=== PATIENT | male | born 1970 | race Hispanic/Latino ===

== ENCOUNTER 2017-09-01 11:16 | Emergency (ER) | payer BC ==
[2017-09-01 11:24] VITALS: BMI 32.5
[2017-09-01 11:25] VITALS: RESP 18; TEMP 98
[2017-09-01] MEDS ORDERED: levoFLOXacin 750 MG TAB PO STA (12:12)
--- NOTE | 2017-09-01 12:20 | ED PDOC ---
Arrival/HPI - General Chief Complaint: ENT Problem Time Seen by Provider: 09/01/17 12:07 Historian: Patient - History of Present Illness Narrative History of Present Illness (Text): 09/01/17 12:10 A 46 year old male, with no significant past medical history, presents to the emergency department complaining of initially dry productive cough subsequently turning to clear yellow, non-bloody sputum intermittently for the last 9 days. Patient reports initially experiencing symptom along with severe nasal congestion, sore throat, and subjective fever (T-max 99). States symptoms improved, however within the last 24 hours, coughing/congestion symptoms have worsened, resulting in associated bilateral ear pain (left greater than right), and mild headache. Patient describes feeling as though he is "under water". Patient denies any chills, diaphoresis, chest pain, shortness of breath, wheezing, abdominal pain, nausea, vomiting, new rashes, or any other complaints at this time. 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 pt denied john pt denied vision changes pt denied other complaints pt is here for further eval PMD: Dr. Ramos Time/Duration: > week (9 days) Symptom Onset: Gradual Symptom Course: Worsening Severity Level: Severe Activities at Onset: Rest Context: Home Past Medical History - Provider Review Nursing Documentation Reviewed: Yes - Travel History Have you recently traveled outside [place] w/in the past 3 mons?: No - Past History Past History: No Previous - Infectious Disease Hx of Infectious Diseases: None - Psychiatric Hx Substance Use: No - Surgical History Other/Comment: JESSIE mae, "bone infection" - Anesthesia Hx Anesthesia: Yes Hx Anesthesia Reactions: No Hx Malignant Hyperthermia: No Family/Social History - Physician Review Nursing Documentation Reviewed: Yes Family/Social History: No Known Family HX Smoking Status: Never Smoked Hx Alcohol Use: No Hx Substance Use: No Allergies/Home Meds Allergies/Adverse Reactions: Allergies azithromycin Allergy (Verified 09/01/17 11:26) RASH cefprozil [From Cefzil] Allergy (Verified 09/01/17 11:26) RASH nafcillin Allergy (Verified 09/01/17 11:24) RASH rifampin Allergy (Verified 09/01/17 11:26) RASH Review of Systems - Physician Review All systems were reviewed & negative as marked: Yes - Review of Systems Constitutional: Fevers (subjective) Eyes: Normal ENT: Sore Throat, Sinus Congestion, Other (bilateral ear pain (left greater than right)) Respiratory: Cough (productive), Sputum (yellowish, non-bloody). absent: SOB, Wheezing Cardiovascular: absent: Chest Pain Gastrointestinal: absent: Abdominal Pain, Nausea, Vomiting Genitourinary Male: absent: Dysuria, Frequency, Hematuria, Urinary Output Changes Musculoskeletal: Normal Skin: absent: Rash Neurological: Headache (mild) Endocrine: absent: Diaphoresis Hemo/Lymphatic: Normal Psychiatric: Normal Physical Exam - Physical Exam Narrative Physical Exam (Text): 09/01/17 1215 General: alert/awake, GCS = 15, oriented x 3, resting in bed, uncomfortable, cooperative, interactive; NAD Head: NC/AT EYE: PERRLA, EOMI, sclera anicteric, no nystagmus, no photophobia Facial: WNL ENT: + left partial obstrx from cerumen but noted TM erythema/bulging; no discharge/bleeding/FB/masses noted; right TM, no pus/discharge noted, no tenderness noted on exam Oral: uvula/tongue are midline, no exudate/lesions, no drooling/stridor, no dysphonia; intact dentitions; moist oral mucosa NECK: intact ROM, no midline tenderness, no nuchal rigidity, no meningeal signs ; no step off Chest: CTA b/l, no w/r/r; no tachypenia, no accessory muscle use noted Chest Wall: no focal tenderness, no gross deformities, no crepitus, no lesions/ rashes noted Cardiac: +S1, +S2, no m/r/r, no tachycardia Abdominal: +BS, soft/nd/nt, well nourished patient; no masses/rebound/guarding/ rigidity; no buck's sign, no mcburney's point tenderness Extremities: intact ROM, strength 5/5 grossly intact in all limbs, neurovasc intact b/l; + ambulatory; reflex +2/2 BACK: no step off, no midline tenderness, NO crepitus, no gross deformities noted; Intact ROM SKIN: cap refill < 1 sec, no ulcerations, no petechiae, no rashes NEURO: CNII-XII WNL, no facial asymmetries, no slurr speech, oriented x 3 NIH stroke scale ~ 0 Psych: normal insight, normal affect; follows command with ease Vital Signs Reviewed: Yes Vital Signs Temp Pulse Resp BP Pulse Ox 09/01/17 14:30 83 18 112/75 98 09/01/17 11:24 98.0 F 94 H 18 123/83 97 Temperature: Afebrile Blood Pressure: Normal Pulse: Regular Respiratory Rate: Normal Appearance: Positive for: Well-Appearing, Non-Toxic, Uncomfortable. No: Ill- Appearing, Unkept Pain Distress: None Mental Status: Positive for: Alert and Oriented X 3 - Systems Exam Head: Present: Atraumatic, Normocephalic Medical Decision Making ED Course and Treatment: 09/01/17 12:14 Impression: 46 year old male with dry productive cough with clear yellow, non- bloody sputum; severe congestion, sore throat, and subjective fever (T-max 99); bilateral ear pain (left greater than right), and mild headache. Plan: -- Chest X-ray -- Motrin -- Leviquin -- Reassess and disposition Progress Notes: 1:00pm pt is awaiting Cxr results 09/01/17 1330 vital signs are stable pt is made aware of his medical results pt is encouraged fluids pt is encouraged NO swimming pt will f/u as directed pt will be discharged home Re-evaluation Time: 14:00 Reassessment Condition: Improved - RAD Interpretation Narrative RAD Interpretations (Text): 09/01/2017 13:27 Chest X-ray IMPRESSION: No active disease. Dictator: Jarret Abbasi MD Radiology Orders: 09/01/17 12:14 CHEST TWO VIEWS (PA/LAT) [RAD] Stat Poultry Cleaner: Radiologist - Medication Orders Current Medication Orders: Discontinued Medications Ibuprofen (Motrin Tab) 400 mg PO STAT STA Stop: 09/01/17 12:15 Last Admin: 09/01/17 12:35 Dose: 400 mg MAR Pain/Vitals Document 09/01/17 12:35 EQ (Rec: 09/01/17 12:39 EQ [id number]) Pain Reassessment Is This A Pain ReAssessment? No Sleep Is patient sleeping during reassessment? No Presence of Pain Presence of Pain Yes Pain Scale Used Pain Scale Used Numeric Levofloxacin (Levaquin) 750 mg PO STAT STA PRN Reason: Protocol Stop: 09/01/17 12:13 Last Admin: 09/01/17 12:39 Dose: 750 mg - Pepitoibe Statement The provider has reviewed the documentation as recorded by the Hubert Carroll Provider Hubert Attestation: All medical record entries made by the Pepitoibsean were at my direction and personally dictated by me. I have reviewed the chart and agree that the record accurately reflects my personal performance of the history, physical exam, medical decision making, and the department course for this patient. I have also personally directed, reviewed, and agree with the discharge instructions and disposition. Disposition/Present on Arrival - Present on Arrival Any Indicators Present on Arrival: No History of DVT/PE: No History of Uncontrolled Diabetes: No Urinary Catheter: No History of Decub. Ulcer: No History Surgical Site Infection Following: None - Disposition Have Diagnosis and Disposition been Completed?: Yes Diagnosis: Sinusitis, Acute bronchitis, Otitis media Disposition: HOME/ ROUTINE Disposition Time: 14:00 Patient Plan: Discharge Condition: STABLE Discharge Instructions (ExitCare): Sinusitis in Adults, Ear Infections (Otitis Media), Acute Bronchitis Print Language: MONTENEGR[place] Additional Instructions: Make sure to see your doctor in 1-2 days DRINK PLENTY OF FLUIDS take your medications as prescribed AVOID swimming RETURN TO ED IF worse pain, cant breath, persistent vomiting, cant hear, high fever >101-102 for hours, altered behavior, slurr speech, facial changes, focal weakness (arm/leg or both), unable to urinate, heavy/persistent bleeding, passing out, chest pain, or other medical emergencies Prescriptions: Ibuprofen [Motrin] 600 mg PO QID PRN #30 tab PRN Reason: Pain, Mild (1-3) Levofloxacin [Levaquin] 750 mg PO DAILY #9 tablet Lidocaine 2% Viscous 10 ml MM TID PRN #100 ml PRN Reason: Pain, Mild (1-3) Ofloxacin Otic 0.3% [Floxin 0.3% Otic Soln] 10 drop OS BID 7 Days bottle Referrals: Adrian Mckeon DO [[facility]] - Follow up with primary [facility] [Outside] - Follow up with primary [facility] [Outside] - Follow up with primary [facility] [place] [Outside] - Follow up with primary Forms: [facility] (Swedish), WORK NOTE
--- NOTE | 2017-09-01 13:29 | RAD ---
HISTORY: coughing/productive; subjective fever COMPARISON: No prior. TECHNIQUE: Chest PA and lateral FINDINGS: LUNGS: No active pulmonary disease. PLEURA: No significant pleural effusion identified. No pneumothorax apparent. CARDIOVASCULAR: Normal. OSSEOUS STRUCTURES: No significant abnormalities. VISUALIZED UPPER ABDOMEN: Normal. OTHER FINDINGS: None. IMPRESSION: No active disease.
[2017-09-01 14:52] VITALS: BP 112/75; PULSE 83; O2SAT 98
== END 2017-09-01 14:26 | disposition home or self-care (01) ==
LOC: ED 11:16
DX: J20.9 Acute bronchitis, unspecified (principal); J32.9 Chronic sinusitis, unspecified; H66.92 Otitis media, unspecified, left ear